=== PATIENT | female | born 2000 | race Caucasian/White ===

== ENCOUNTER 2021-07-31 22:07 | Emergency (ER) | payer OTHER ==
[2021-07-31 22:20] VITALS: BP 111/60
--- NOTE | 2021-07-31 23:51 | XRAY Report ---
PROCEDURE: Foot 3 View LT INDICATIONS: Trauma TECHNIQUE: 4 views of the foot were acquired. COMPARISON: None. FINDINGS: Bones: No fractures or dislocations. No suspicious bony lesions. Soft tissues: No tibiotalar joint effusion. Achilles tendon appears normal. IMPRESSION: No trauma found. Reviewed by: Kyle Del Angel MD on 07/31/2021 11:54 PM PDT Approved by: Kyle Del Angel MD on 07/31/2021 11:54 PM PDT Station ID: [id number]
--- NOTE | 2021-08-01 00:34 | ED Physician Documentation ---
PD HPI LOWER EXT INJURY - Stated complaint Stated Complaint: FELL DOWN STAIRS/LT TOE PX - Chief complaint Chief Complaint: Trauma Ext - History obtained from History obtained from: Patient - History of Present Illness PD HPI LOW EXT INJURY LOCATION: Left, Toe (5th toe base) Type of injury: Twist (toe twisted as she mis-stepped and fell down steps.) Where injury occurred: Home Timing - details: Abrupt onset, Still present Improved by: Rest Worsened by: Moving, Palpating Similar symptoms before: Has not had sx before Review of Systems Skin: denies: Abrasion (s), Laceration (s) Musculoskeletal: denies: Neck pain, Back pain Neurologic: denies: Focal weakness, Numbness PD PAST MEDICAL HISTORY - Allergies Allergies/Adverse Reactions: Allergies Allergy/AdvReac Type Severity Reaction Status Date / Time Penicillins Allergy Hives Verified 07/31/21 22:20 PD ED PE NORMAL - Vitals Vital signs reviewed: Yes - General General: Alert and oriented X 3, No acute distress, Well developed/nourished - Derm Derm: Normal color, Warm and dry - Extremities Extremities: Other (left 5th toe tender at MTP without noted deformity. Normal color and cap refill distally. ) - Neuro Neuro: No motor deficit, No sensory deficit Results - Vitals Vitals: Oxygen O2 Source Room air - Rads (name of study) left foot Radiology: Prelim report reviewed (no fractures.), See rad report PD MEDICAL DECISION MAKING - ED course Complexity details: reviewed results, considered differential (toe injury with negative xray. ), d/w patient Departure - Departure Disposition: 01 Home, Self Care Clinical Impression: Sprain of toe, fifth, left Qualifiers: Encounter type: initial encounter Qualified Code(s): S93.505A - Unspecified sprain of left lesser toe(s), initial encounter Condition: Stable Record reviewed to determine appropriate education?: Yes Instructions: ED Sprain Toe Follow-Up: DONALD CAIN DO [Primary Care Provider] - Comments: Your x-ray does not show any fractures. No dislocations. Presume a sprain and this will likely be sore over the next 4 to 6 days. Progress activity as tolerated. Ibuprofen 2-3 times daily to help with pain or discomfort. Recheck with your primary care if not better in the next 7 to 10 days. Discharge Date/Time: 08/01/21 00:46
[2021-08-01] MEDS ORDERED: IBUPROFEN 600 MG TABLET PO STA (00:41)
== END 2021-08-01 00:46 | disposition home or self-care (01) ==
LOC: ED 22:07
DX: S93.505A Unspecified sprain of left lesser toe(s), initial encounter (principal); W10.9XXA Fall (on) (from) unspecified stairs and steps, initial encounter; Y92.009 Unspecified place in unspecified non-institutional (private) residence as the place of occurrence of the external cause
CPT/HCPCS: 73630; 99282; 99283; A9270

== ENCOUNTER 2021-09-03 11:36 | Outpatient (CLI) | payer OTHER | END 2021-09-03 11:37 | disposition home or self-care (01) | LOC: LAB.N 11:36 | PROVIDERS: ATTEND Physician Assistant Medical | DX: N76.4 Abscess of vulva (principal) | CPT/HCPCS: 87070; 87077; 87181; 87205 ==

== ENCOUNTER 2022-06-02 17:30 | Emergency (ER) | payer OTHER ==
[2022-06-02] MEDS ORDERED: METOCLOPRAMIDE 10 MG TABLET PO STA (17:55)
--- NOTE | 2022-06-02 17:56 | ED Physician Documentation ---
PD HPI NVD - Stated complaint Stated Complaint: VOMITING - Chief complaint Chief Complaint: Abd Pain - History obtained from History obtained from: Patient - Additonal information Additional information: 21-year-old with no history of health problems except for depression on fluoxetine presents for vomiting. For the last month and a half she has been vomiting, its been a little less than once daily. Over the last 3 days it has been accelerated a bit to maybe 2-3 times a day. There is no associated abdominal pain, no weight changes, no changes in her bowel movements. No history of abdominal problems, ulcers, or surgeries. Home tests have been negative. PD PAST MEDICAL HISTORY - Present Medications Home Medications: Ambulatory Orders Medication Instructions Recorded Confirmed FLUoxetine [PROzac] 40 mg PO DAILY 06/02/22 06/02/22 Metoclopramide [Reglan] 10 mg PO Q6H PRN #20 tablet 06/02/22 - Allergies Allergies/Adverse Reactions: Allergies Allergy/AdvReac Type Severity Reaction Status Date / Time Penicillins Allergy Hives Verified 06/02/22 17:39 PD ED PE NORMAL - Vitals Vital signs reviewed: Yes - General General: Alert and oriented X 3, No acute distress - Cardiac Cardiac: RRR, No murmur - Respiratory Respiratory: No respiratory distress, Clear bilaterally - Abdomen Abdomen: Normal bowel sounds, Soft, Non tender - Neuro Neuro: Alert and oriented X 3, Normal speech - Psych Psych: Normal mood, Normal affect Results - Vitals Vitals: Vital Signs - 24 hr 06/02/22 17:33 Temperature 36.4 C L Heart Rate 67 Respiratory 16 Rate Blood Pressure 133/63 H O2 Saturation 100 Oxygen O2 Source Room air - Labs Labs: Laboratory Tests 06/02/22 06/02/22 06/02/22 17:52 18:02 18:02 WBC 8.8 RBC 4.54 Hgb 13.2 Hct 41.3 MCV 91.0 MCH 29.1 MCHC 32.0 RDW 12.8 Plt Count 257 MPV 9.6 Neut # (Auto) 6.1 Lymph # (Auto) 2.0 [place] # (Auto) 0.6 Eos # (Auto) 0.1 Baso # (Auto) 0.1 Absolute Nucleated RBC 0.00 Nucleated RBC % 0.0 Sodium 139 Potassium 3.5 Chloride 103 Carbon Dioxide 29 Anion Gap 7.0 BUN 16 Creatinine 0.8 Estimated GFR (MDRD) 90 Glucose 124 H Calcium 9.3 Total Bilirubin 0.7 AST 24 ALT 25 Alkaline Phosphatase 52 Total Protein 7.3 Albumin 4.3 Globulin 3.0 Albumin/Globulin Ratio 1.4 Urine Color YELLOW Urine Clarity CLEAR Urine pH 6.0 Ur Specific [place] 1.025 Urine Protein NEGATIVE Urine Glucose (UA) NEGATIVE Urine Ketones TRACE Urine Occult Blood NEGATIVE Urine Nitrite NEGATIVE Urine Bilirubin NEGATIVE Urine Urobilinogen 0.2 (NORMAL) Ur Leukocyte Esterase NEGATIVE Ur Microscopic Review NOT INDICATED Urine Culture Comments NOT INDICATED Urine HCG, Qual NEGATIVE PD Medical Decision Making - ED course ED course: 21-year-old woman with vomiting progressive over the last couple of months. This is with a normal exam, CBC normal, CMP normal, urinalysis and urine test normal. No emergency medical condition is evident. She was treated with Reglan here. Departure - Departure Disposition: 01 Home, Self Care Clinical Impression: Vomiting Condition: Good Record reviewed to determine appropriate education?: Yes Instructions: ED Nausea Vomiting Prescriptions: Metoclopramide [Reglan] 10 mg PO Q6H PRN #20 tablet PRN Reason: nausea or headache Comments: The cause of your vomiting is not clear. Your basic labs including CBC CMP, urinalysis, and test are negative/normal with the exception of a very mildly elevated blood sugar at 124 of uncertain significance. This would not cause any symptomatology. Follow-up with your primary care physician, consider referral to gastroenterology. Return for new or worsening symptoms.
[2022-06-02 18:04] LABS: BILIRUBIN,URINE NEGATIVE (NEGATIVE); GLUCOSE, URINE (UA) NEGATIVE (NEGATIVE); KETONES,URINE (UA) TRACE mg/dL (NEGATIVE); LEUKOCYTE ESTERASE, URINE NEGATIVE (NEGATIVE); NITRITE,URINE NEGATIVE (NEGATIVE); OCCULT BLOOD,URINE NEGATIVE (NEGATIVE); PROTEIN,URINE NEGATIVE (NEGATIVE); UROBILINOGEN,URINE 0.2 (NORMAL) E.U./dL (NORMAL)
[2022-06-02 18:06] LABS: BASOPHILS # (AUTO) 0.1 10^3/uL (0.0-0.1); BASOPHILS % (AUTO) 0.8 %; EOSINOPHILS # (AUTO) 0.1 10^3/uL (0.0-0.7); EOSINOPHILS % (AUTO) 0.7 %; HCT - HEMATOCRIT 41.3 % (37.0-47.0); HGB - HEMOGLOBIN 13.2 g/dL (12.0-16.0); LYMPHOCYTES % (AUTO) 22.8 %; MEAN CORPUSCULAR HEMOGLOBIN 29.1 pg (27.0-31.0); MEAN PLATELET VOLUME 9.6 fL (7.9-10.8); MONOCYTES # (AUTO) 0.6 10^3/uL (0.0-1.0); MONOCYTES % (AUTO) 6.9 %; NEUTROPHILS # (AUTO) 6.1 10^3/uL (1.5-6.6); NEUTROPHILS % (AUTO) 68.6 %; PLT - PLATELET COUNT 257 10^3/uL (130-450); RED BLOOD COUNT 4.54 10^6/uL (4.20-5.40); RED CELL DISTRIBUTION WIDTH 12.8 % (12.0-15.0); WHITE BLOOD COUNT 8.8 x10^3/uL (4.8-10.8)
[2022-06-02 18:06] LABS: CLARITY,URINE CLEAR (CLEAR); HCG UR QUAL NEGATIVE
[2022-06-02 18:18] LABS: ALBUMIN 4.3 g/dL (3.2-5.5); ALBUMIN/GLOBULIN RATIO 1.4 (1.0-2.2); BILIRUBIN,TOTAL 0.7 mg/dL (0.2-1.0); CALCIUM 9.3 mg/dL (8.5-10.3); CREATININE 0.8 mg/dL (0.4-1.0); POTASSIUM 3.5 mmol/L (3.5-5.0); TOTAL PROTEIN 7.3 g/dL (6.7-8.2)
[2022-06-02 18:38] VITALS: BP 118/66
== END 2022-06-02 18:37 | disposition home or self-care (01) ==
LOC: ED 17:30
DX: R11.10 Vomiting, unspecified (principal)
CPT/HCPCS: 36415; 80053; 81003; 81025; 85025; 99283; A9270; 81001; 87086

== ENCOUNTER 2022-06-04 20:59 | Emergency (ER) | payer OTHER ==
[2022-06-04 21:31] LABS: BILIRUBIN,URINE NEGATIVE (NEGATIVE); GLUCOSE, URINE (UA) NEGATIVE (NEGATIVE); KETONES,URINE (UA) 15 mg/dL (NEGATIVE); LEUKOCYTE ESTERASE, URINE NEGATIVE (NEGATIVE); NITRITE,URINE NEGATIVE (NEGATIVE); OCCULT BLOOD,URINE NEGATIVE (NEGATIVE); PH,URINE 5.5 PH (5.0-7.5); PROTEIN,URINE NEGATIVE (NEGATIVE); UROBILINOGEN,URINE 0.2 (NORMAL) E.U./dL (NORMAL)
[2022-06-04 21:36] LABS: CLARITY,URINE CLEAR (CLEAR)
[2022-06-04 21:38] LABS: HCG UR QUAL NEGATIVE
[2022-06-04] MEDS ORDERED: ONDANSETRON ODT 4 MG TABLET TL STA (21:41)
[2022-06-04 21:45] LABS: BASOPHILS % (AUTO) 0.3 %; EOSINOPHILS % (AUTO) 0.3 %; HCT - HEMATOCRIT 43.6 % (37.0-47.0); LYMPHOCYTES # (AUTO) 0.5 10^3/uL (1.5-3.5); LYMPHOCYTES % (AUTO) 5.1 %; MEAN CORPUSCULAR HEMOGLOBIN 28.8 pg (27.0-31.0); MEAN CORPUSCULAR HGB CONC 32.1 g/dL (32.0-36.0); MEAN CORPUSCULAR VOLUME 89.7 fL (81.0-99.0); MEAN PLATELET VOLUME 9.6 fL (7.9-10.8); MONOCYTES # (AUTO) 0.5 10^3/uL (0.0-1.0); MONOCYTES % (AUTO) 5.8 %; NEUTROPHILS # (AUTO) 8.1 10^3/uL (1.5-6.6); NEUTROPHILS % (AUTO) 88.4 %; PLT - PLATELET COUNT 222 10^3/uL (130-450); RED BLOOD COUNT 4.86 10^6/uL (4.20-5.40); RED CELL DISTRIBUTION WIDTH 12.7 % (12.0-15.0); WHITE BLOOD COUNT 9.1 x10^3/uL (4.8-10.8)
[2022-06-04 21:59] LABS: ALBUMIN 4.7 g/dL (3.2-5.5); ALBUMIN/GLOBULIN RATIO 1.6 (1.0-2.2); BILIRUBIN,TOTAL 1.2 mg/dL (0.2-1.0); CALCIUM 8.7 mg/dL (8.5-10.3); CREATININE 0.8 mg/dL (0.4-1.0); POTASSIUM 3.5 mmol/L (3.5-5.0); TOTAL PROTEIN 7.7 g/dL (6.7-8.2)
[2022-06-04 22:13] LABS: B. PARAPERTUSSIS- RESP PCR PAN NOT DETECTED; B. PERTUSSIS- RESP PCR PANEL NOT DETECTED; C. PNEUMONIAE- RESP PCR PANEL NOT DETECTED; CORONAVIRUS 229E-RESP PCR NOT DETECTED; CORONAVIRUS HKU1-RESP PCR NOT DETECTED; CORONAVIRUS NL63-RESP PCR NOT DETECTED; CORONAVIRUS OC43-RESP PCR NOT DETECTED; HUMAN METAPNEUMOVIRUS NOT DETECTED; INFLUENZA A- RESP PCR PANEL NOT DETECTED; INFLUENZA B - RESP PCR PANEL NOT DETECTED; M. PNEUMONIAE- RESP PCR PANEL NOT DETECTED; PARAINFLUENZA VIRUS 1 NOT DETECTED; PARAINFLUENZA VIRUS 2 NOT DETECTED; PARAINFLUENZA VIRUS 3 NOT DETECTED; PARAINFLUENZA VIRUS 4 NOT DETECTED; RHINOVIRUS/ENTEROVIRUS NOT DETECTED; RSV- RESP PCR PANEL NOT DETECTED; SARS-CoV-2 -RESP PCR PANEL NOT DETECTED
--- NOTE | 2022-06-04 23:14 | ED Physician Documentation ---
History of Present Illness - Stated complaint Stated Complaint: BODY PX/V/D - Chief complaint Chief Complaint: Heent - History obtained from History obtained from: Patient - Additonal information Additional information: T+R from this ED 06/02/22 for vomiting (which had been intermittent x 1.5 months). She had unremarkable blood tests and was d/c with rx for reglan but has not picked up this rx yet. She returns at this time c/o nausea, vomiting, diarrhea, body aches, chills, and fever Tmax 102.5. She says she is not tolerating any PO including fluids and is lightheaded at times when standing. Denies recent antibiotic use. Denies blood in stool/vomitus. Denies chances of . Review of Systems Constitutional: reports: Fever, Chills, Myalgias. denies: Sweats Cardiac: reports: Reviewed and negative Respiratory: reports: Reviewed and negative GI: reports: Nausea, Vomiting, Diarrhea. denies: Abdominal Pain (diffuse body aches but not abdominal pain per se), Constipation, Hematemesis, Bloody / black stool : denies: Dysuria, Frequency, Now EGA Neurologic: denies: Generalized weakness, Focal weakness, Numbness, Headache PD PAST MEDICAL HISTORY - Past Medical History Past Medical History: Yes Psych: Depression - Past Surgical History Past Surgical History: No - Present Medications Home Medications: Ambulatory Orders Medication Instructions Recorded Confirmed FLUoxetine [PROzac] 40 mg PO DAILY 06/02/22 06/02/22 Metoclopramide [Reglan] 10 mg PO Q6H PRN #20 tablet 06/02/22 Omeprazole 40 mg PO DAILY #14 cap 06/04/22 Sucralfate [Carafate] 1 gm PO ACHS #60 tablet 06/04/22 - Allergies Allergies/Adverse Reactions: Allergies Allergy/AdvReac Type Severity Reaction Status Date / Time Penicillins Allergy Hives Verified 06/04/22 21:10 - Social History Does the pt smoke?: No Smoking Status: Former smoker Does the pt drink ETOH?: Yes Does the pt have substance abuse?: No - POLST Patient has POLST: No PD ED PE NORMAL - Vitals Vital signs reviewed: Yes - General General: Alert and oriented X 3, No acute distress, Well developed/nourished - HEENT HEENT: Moist mucous membranes - Neck Neck: Supple, no meningeal sign - Cardiac Cardiac: No murmur - Respiratory Respiratory: No respiratory distress, Clear bilaterally - Abdomen Abdomen: Normal bowel sounds, Soft, Non distended, No organomegaly, Other (mild LUQ TTP without rebound or guarding) - Back Back: No CVA TTP - Derm Derm: Normal color, Warm and dry PD ED PE EXPANDED - Cardiac Cardiac: Tachy, Regular Rhythm Results - Vitals Vitals: Oxygen O2 Source Room air - Labs Labs: Laboratory Tests 06/04/22 06/04/22 06/04/22 21:15 21:28 21:39 WBC 9.1 RBC 4.86 Hgb 14.0 Hct 43.6 MCV 89.7 MCH 28.8 MCHC 32.1 RDW 12.7 Plt Count 222 MPV 9.6 Neut # (Auto) 8.1 H Lymph # (Auto) 0.5 L Yell # (Auto) 0.5 Eos # (Auto) 0.0 Baso # (Auto) 0.0 Absolute Nucleated RBC 0.00 Nucleated RBC % 0.0 Sodium Potassium Chloride Carbon Dioxide Anion Gap BUN Creatinine Estimated GFR (MDRD) Glucose Calcium Total Bilirubin AST ALT Alkaline Phosphatase Total Protein Albumin Globulin Albumin/Globulin Ratio Lipase Urine Color YELLOW Urine Clarity CLEAR Urine pH 5.5 Ur Specific [place] >=1.030 H Urine Protein NEGATIVE Urine Glucose (UA) NEGATIVE Urine Ketones 15 H Urine Occult Blood NEGATIVE Urine Nitrite NEGATIVE Urine Bilirubin NEGATIVE Urine Urobilinogen 0.2 (NORMAL) Ur Leukocyte Esterase NEGATIVE Ur Microscopic Review NOT INDICATED Urine Culture Comments NOT INDICATED Urine HCG, Qual NEGATIVE Nasal Adenovirus (PCR) NOT DETECTED Nasal B. parapertussis DNA (PCR) NOT DETECTED Nasal Coronavir 229E PCR NOT DETECTED Nasal Coronavir HKU1 PCR NOT DETECTED Nasal Coronavir NL63 PCR NOT DETECTED Nasal Coronavir OC43 PCR NOT DETECTED Nasal Enterovir/Rhinovir PCR NOT DETECTED Nasal Influenza B PCR NOT DETECTED Nasal Influenza A PCR NOT DETECTED Nasal Parainfluen 1 PCR NOT DETECTED Nasal Parainfluen 2 PCR NOT DETECTED Nasal Parainfluen 3 PCR NOT DETECTED Nasal Parainfluen 4 PCR NOT DETECTED Nasal RSV (PCR) NOT DETECTED Nasal B.pertussis DNA PCR NOT DETECTED Nasal C.pneumoniae (PCR) NOT DETECTED Bennie Human Metapneumo PCR NOT DETECTED Nasal M.pneumoniae (PCR) NOT DETECTED Nasal SARS-CoV-2 (PCR) NOT DETECTED 06/04/22 21:39 WBC RBC Hgb Hct MCV MCH MCHC RDW Plt Count MPV Neut # (Auto) Lymph # (Auto) Yell # (Auto) Eos # (Auto) Baso # (Auto) Absolute Nucleated RBC Nucleated RBC % Sodium 136 Potassium 3.5 Chloride 103 Carbon Dioxide 23 Anion Gap 10.0 BUN 14 Creatinine 0.8 Estimated GFR (MDRD) 90 Glucose 115 H Calcium 8.7 Total Bilirubin 1.2 H AST 21 ALT 23 Alkaline Phosphatase 50 Total Protein 7.7 Albumin 4.7 Globulin 3.0 Albumin/Globulin Ratio 1.6 Lipase 30 Urine Color Urine Clarity Urine pH Ur Specific [place] Urine Protein Urine Glucose (UA) Urine Ketones Urine Occult Blood Urine Nitrite Urine Bilirubin Urine Urobilinogen Ur Leukocyte Esterase Ur Microscopic Review Urine Culture Comments Urine HCG, Qual Nasal Adenovirus (PCR) Nasal B. parapertussis DNA (PCR) Nasal Coronavir 229E PCR Nasal Coronavir HKU1 PCR Nasal Coronavir NL63 PCR Nasal Coronavir OC43 PCR Nasal Enterovir/Rhinovir PCR Nasal Influenza B PCR Nasal Influenza A PCR Nasal Parainfluen 1 PCR Nasal Parainfluen 2 PCR Nasal Parainfluen 3 PCR Nasal Parainfluen 4 PCR Nasal RSV (PCR) Nasal B.pertussis DNA PCR Nasal C.pneumoniae (PCR) Bennie Human Metapneumo PCR Nasal M.pneumoniae (PCR) Nasal SARS-CoV-2 (PCR) PD Medical Decision Making - ED course Complexity details: reviewed old records (reviewed [facility] ED record from 06/02/22 visit), reviewed results, re-evaluated patient, considered differential, d/w patient ED course: Patient is well-appearing with moist mucous membranes, clear lungs to auscultation, and only mild TTP LUQ on abdominal exam. She is noted to be febrile and tachycardic. Unremarkable blood tests including CBC, ER abdominal panel (excepting bilirubin of 1.2, with normal bilirubin on 06/02), negative respiratory PCR panel, and normal UA (and negative UHCG). Given her fever without a source, mild tachycardia, and mild LUQ tenderness, as well as report of unable to tolerate PO, I recommended IV for rehydration (IV NS) as well as CT A/P. She declines this; she says she feels better by the time of my evaluation (this is after the tests have already resulted) and would prefer to go home, return if worse, and follow up with PMD. She is well- appearing/nontoxic appearance, with MMM, and reassuring blood tests. This is a reasonable option, particularly as she is tolerating the zofran and protonix given PO in ED along with sips of water. I encouraged follow up with PMD, might benefit from referral to GI for further testing such as upper endoscopy (given the episodic vomiting x 1.5 months). I prescribed omeprazole and carafate for this patient in who gastritis is suspected as at least a factor in her symptoms. Departure - Departure Disposition: 01 Home, Self Care Clinical Impression: Vomiting Qualifiers: Vomiting type: unspecified Nausea presence: with nausea Qualified Code(s): R11.2 - Nausea with vomiting, unspecified Condition: Good Instructions: ED Nausea Vomiting, ED Vomiting Diarrhea Nonspecific Ad Prescriptions: Sucralfate [Carafate] 1 gm PO ACHS #60 tablet Omeprazole 40 mg PO DAILY #14 cap Comments: There were no concerning or diagnostic findings on [facility] tests. Your electrolytes, white blood cell count, red blood cell count, kidney function tests, and blood sugar were all normal. Your liver function tests were normal with the exception of a minimally elevated bilirubin; the finding of a minimally elevated bilirubin in the setting of otherwise normal liver function tests and no pain or tenderness in the right upper quadrant is likely an irrelevant and incidental finding. Your urinalysis was normal (no evidence of infection of the urine), and the nasal swab was negative for all the viruses that were tested including COVID, influenza. The cause of your symptoms remains unclear at this time. As we discussed, I recommended getting a CT scan of your abdomen pelvis [facility], which you declined. While I think the CT scan could potentially be helpful in obtaining more information that could result in, or suggest ("point to") a diagnosis (in other words, a cause of your symptoms), based on your lack of any significant pain/tenderness of the abdomen, combined with the unremarkable blood work, it is reasonable to hold off on performing this test until and unless the symptoms worsen, or if you develop new/concerning signs/symptoms. Certainly, if you do develop new signs or symptoms, or worsening of your current symptoms, I would recommend you return to the emergency department for reevaluation. Otherwise, as we discussed, I recommend that you contact your primary care providers office when the office is next open; explained that you had to visit the emergency department twice over the weekend for the symptoms, and see if they can get you in sooner for reevaluation. I have electronically submitted prescriptions for an acid blocking medication as well as Carafate, which is a medication that helps coat the lining of the stomach and thus a protective barrier between the acid and the stomach wall. Discharge Date/Time: 06/05/22 00:01
[2022-06-04 23:25] VITALS: BP 118/70
[2022-06-04] MEDS ORDERED: PANTOPRAZOLE 40 MG TABLET PO STA (23:43)
== END 2022-06-05 00:01 | disposition home or self-care (01) ==
LOC: ED 20:59
DX: R11.2 Nausea with vomiting, unspecified (principal); Z87.891 Personal history of nicotine dependence; Z20.822 Contact with and (suspected) exposure to COVID-19
CPT/HCPCS: 36415; 80053; 81003; 81025; 83690; 85025; 87633; 99283; 99284; A9270; Q0162; 81001; 87086

== ENCOUNTER 2023-02-21 12:15 | Outpatient (CLI) | payer OTHER ==
[2023-02-21 21:17] LABS: INFLUENZA A- RESP PCR PANEL NOT DETECTED; INFLUENZA B - RESP PCR PANEL NOT DETECTED; RSV- RESP PCR PANEL NOT DETECTED; SARS-CoV-2 -RESP PCR PANEL DETECTED
== END 2023-02-21 12:30 | disposition home or self-care (01) ==
LOC: LAB.N 12:15
PROVIDERS: ATTEND Registered Nurse
DX: U07.1 COVID-19 (principal)
CPT/HCPCS: 87637

== ENCOUNTER 2023-05-26 08:14 | Outpatient (CLI) | payer OTHER ==
--- NOTE | 2023-05-26 14:23 | MRI Report ---
PROCEDURE: Wrist LT WO INDICATIONS: WRIST PAIN TECHNIQUE: Noncontrast coronal T1 spin echo, proton density fast spin echo and T2 fast spin echo with fat satura tion; coronal 3-D gradient echo, axial T1 spin echo and T2 fast spin echo with fat saturation, sagitt al T1 spin echo through the wrist. COMPARISON: None. FINDINGS: Image quality: Excellent. Bones and cartilage: The carpal bones are normally aligned. No bone marrow contusions or fractures. No evidence for avascular necrosis. Overlying cartilage surfaces appear normal. Carpal ligaments: The scapholunate and lunotriquetral ligaments appear intact. On sagittal images, the pisohamate ligament appears intact. Triangular fibrocartilage complex: Full-thickness defect is seen within the central triangular fibroc artilage disc. The dorsal and volar radioulnar ligaments are intact. Tendons and soft tissues: The carpal tunnel structures appear normal, including the median nerve. T he ulnar nerve appears normal within Guyon's canal. Moderate extensor carpi ulnaris tendinosis with l ow-grade partial substance tearing and mild tenosynovitis. The remaining extensor tendon compartments demonstrate normal morphology, without pathologic tendon sheath fluid. Prominent ganglion cyst is se en along the dorsal aspect of the proximal carpal row measuring approximately 2.0 x 0.5 x 1.4 cm. IMPRESSION: 1.Partial intrasubstance tearing of the extensor carpi ulnaris tendon at the level of the ulnar stylo id with mild tenosynovitis and moderate tendinosis. 2.Full-thickness defect is seen within the central triangular fibrocartilage disc. 3.Ganglion cyst at the dorsal aspect of the wrist measures up to 2.0 cm in maximum dimension. Reviewed by: Fito Miranda MD on 05/26/2023 2:22 PM PDT Approved by: Fito Miranda MD on 05/26/2023 2:22 PM PDT Station ID: [id number]
== END 2023-05-26 08:15 | disposition home or self-care (01) ==
LOC: DI 08:14
PROVIDERS: ATTEND Nurse Practitioner Family
DX: S66.812A Strain of other specified muscles, fascia and tendons at wrist and hand level, left hand, initial encounter (principal); M67.432 Ganglion, left wrist